=== PATIENT | female | born 1950 | race Caucasian/White ===

== ENCOUNTER 2019-02-06 07:01 | Day surgery (SDC) | payer MEDICARE, BC ==
[~2019-02-06 07:01] MED LIST: Lactated Ringers 1,000 ML IV SCH; Sodium Chloride 0.9% 10 ML Syringe FLUSH PRN
[2019-02-06] MEDS ORDERED: Propofol 200 MG/20 ML SDV ONE (08:15)
[2019-02-06 10:09] VITALS: BP 123/68; PULSE 72
--- NOTE | 2019-02-06 15:52 | OR ---
SURGERY DATE: 02/06/2019. REFERRING PROVIDER: Penny Tolbert MD. PRE-OPERATIVE DIAGNOSES: 1. Resistant gastroesophageal reflux disease/dyspepsia. 2. Abnormal upper gastrointestinal study with possible stomach mass as well as hiatal hernia present (per patient report). POST-OPERATIVE DIAGNOSES: 1. Large paraesophageal hiatal hernia pouch with probable combination of sliding hiatal hernia present as well. 2. Multitude of benign-appearing gastric polyps. The largest 1 measuring slightly over 1 cm in size was biopsied x2 bites. 3. Mild antritis. Cold biopsy x2 bites taken for path and H pylori. PROCEDURE: EGD with cold biopsy x2 sites. SURGEON: Prosper Tejeda M.D. ANESTHESIA: Monitored anesthesia care. Freda is a 68-year-old female who was brought to the endoscope suite after discussion of risks and benefits (including but not limited to reaction to medication, bleeding, infection, aspiration, perforation). Informed consent was obtained for monitored anesthesia care and esophagogastroduodenoscopy along with possible biopsy and/or dilatation. Pre-procedure exam including oral cavity was unremarkable. IV, oxygen, and monitors were placed. Patient was placed in the left lateral position and sedation was administered. A bite block was placed gently and scope lightly lubricated and passed through the bite block and over the tongue. Hypopharynx and vocal cords were visualized and unremarkable. Scope was passed through the cricopharynx and into the esophagus. The scope was then passed through the distal esophagus and the GE junction was visualized and photographed. The GE junction was remarkable for a large paraesophageal hiatal hernia pouch present. There is also probably a combined sliding type hiatal hernia present as well. There was only some minimal amount of inflammation at the Z-line. The scope was advanced into the stomach. Gastric Baptiste was suctioned. Vocal cords were visualized and unremarkable. The scope was advanced into the stomach and gastric bapitste was suctioned. Pylorus was identified and intubated and then the scope was advanced to the third portion of the duodenum. The second and third portions of the duodenum were unremarkable. The duodenal bulb was visualized and unremarkable. The scope was brought back into the stomach. The pylorus and the antrum remarkable for some mild antritis. Cold biopsy x2 bites taken for path and H pylori, which were obtained from the antrum. The scope was then retroflexed to visualize the angularis, fundus, body, and cardia. These were remarkable for multitude of benign-appearing gastric type polyps. The largest 1 which was located in the lower stomach body was may be slightly larger than 1 cm in size. Cold biopsy x2 bites taken. A good view of the combined paraesophageal and sliding type hiatal hernia were noted in retroflexed view. The paraesophageal hernia pouch did contain some fundic type polyps as well, none of which were very large. The stomach was desufflated of air and then the scope slowly withdrawn. Esophagus closely visualized during withdrawal all the way into the posterior pharynx. Esophagus was unremarkable. The stomach was desufflated of air and then the scope was slowly withdrawn, and the esophagus was closely visualized during withdrawal all the way into the posterior pharynx. The patient tolerated the procedure well and went to recovery in stable condition. The patient was monitored until at baseline status. Findings and discharge instructions were reviewed and the patient was discharged in good condition. COMPLICATIONS: None. TOTAL TIME: 11 minutes. ESTIMATED BLOOD LOSS: About 1 mL. RECOMMENDATIONS/FOLLOW-UP: Recommend the patient continue on her omeprazole 20 mg twice a day to control symptoms. I did not see any worrisome tissue or masses on this EGD. She does have a large hiatal hernia, which I suspect is combined paraesophageal and sliding type hiatal hernia. I would recommend she visit with Surgery or Gastroenterology regarding possible repair of this given her ongoing symptoms and to prevent any worsening. I would like to kindly thank Dr. Tolbert for this referral. DMB: 02/06/2019 10:53:09 MODL: 02/06/2019 15:43:50 /[id number]
== END 2019-02-06 10:50 | disposition home or self-care (01) ==
LOC: VM.SDS 07:01
PROVIDERS: ATTEND Family Medicine
DX: K31.7 Polyp of stomach and duodenum (principal); K44.9 Diaphragmatic hernia without obstruction or gangrene; K29.60 Other gastritis without bleeding; K21.9 Gastro-esophageal reflux disease without esophagitis; E03.9 Hypothyroidism, unspecified; E78.00 Pure hypercholesterolemia, unspecified; I11.0 Hypertensive heart disease with heart failure; I50.32 Chronic diastolic (congestive) heart failure; M17.0 Bilateral primary osteoarthritis of knee; M81.0 Age-related osteoporosis without current pathological fracture; E66.01 Morbid (severe) obesity due to excess calories; Z68.45 Body mass index [BMI] 70 or greater, adult; Z79.899 Other long term (current) drug therapy; Z79.82 Long term (current) use of aspirin; Z91.048 Other nonmedicinal substance allergy status
CPT/HCPCS: 00731; 43239; J2704; J7120

== ENCOUNTER 2025-02-27 11:18 | Emergency (ER) | payer OTHER ==
[2025-02-27 11:43] VITALS: BP 132/79; PULSE 76
== END 2025-02-27 11:53 | disposition home or self-care (01) ==
LOC: VM.ED 11:18
DX: H43.393 Other vitreous opacities, bilateral (principal); I11.0 Hypertensive heart disease with heart failure; I50.9 Heart failure, unspecified; E78.00 Pure hypercholesterolemia, unspecified; K21.9 Gastro-esophageal reflux disease without esophagitis; E03.9 Hypothyroidism, unspecified; Z90.49 Acquired absence of other specified parts of digestive tract; Z91.048 Other nonmedicinal substance allergy status; Z79.82 Long term (current) use of aspirin; Z79.899 Other long term (current) drug therapy; Z79.890 Hormone replacement therapy
CPT/HCPCS: 99283